=== PATIENT | female | born 1940 | race African-American/Black ===

== ENCOUNTER 2022-09-03 22:43 | Emergency (ER) | payer SELFPAY ==
[~2022-09-03] VITALS: Ht 162.6 cm; Wt 71.0 kg
[2022-09-03] MEDS ORDERED: SODIUM CHLORIDE 0.9% 1000ML BAG (SEPSIS BOLUS) IV ONE (23:00)
[2022-09-03 23:30] VITALS: BP 100/78
[2022-09-03] MEDS ORDERED: DEXTROSE 50% WATER 50ML SYRINGE IV ONE (23:30)
[2022-09-04] MEDS ORDERED: FENTANYL 2500MCG/250ML PMX 250 ML IV ONE
[2022-09-04] MEDS ORDERED: VANCOMYCIN 1G PREMIX 200 ML IV NR (00:15)
[2022-09-04] MEDS ORDERED: PIPERACILLIN/TAZOBACTAM 3.375GM/50ML PREMIX IV NR (00:15)
[2022-09-04] MEDS ORDERED: DEXTROSE 50% WATER 50ML VIAL IV ONE (00:16)
[2022-09-04] MEDS ORDERED: EPINEPHRINE 0.1MG/ML (1:10,000) 10ML SYR ONE (00:16)
[2022-09-04] MEDS ORDERED: AMIODARONE HCL 50MG/ML 3ML VIAL IV ONE (00:16)
[2022-09-04] MEDS ORDERED: CALCIUM CHLORIDE 1GM/10ML SYR IV ONE (00:16)
== END 2022-09-04 02:25 ==
LOC: ER 22:43 → UNDOADMIN 09-04 00:12 → MICUSO 09-04 00:12 → UNDODISIN 09-04 02:25
DX: J96.90 Respiratory failure, unspecified, unspecified whether with hypoxia or hypercapnia (principal); R00.1 Bradycardia, unspecified; T68.XXXA Hypothermia, initial encounter; I46.9 Cardiac arrest, cause unspecified; E16.2 Hypoglycemia, unspecified
CPT/HCPCS: 31500; 71045; 82962; 92950; 94002; 99291; J0282; J3010; J3490; J7030; Z7610; A4315